=== PATIENT | male | born 1985 | race Caucasian/White ===

== ENCOUNTER 2016-07-23 09:22 | Emergency (ER) | payer OTHER ==
[~2016-07-23 09:22] MED LIST: CILOXAN 0.3% O2.5 ML OD; DENTAL BALLS; FLEXERIL PO; HYDROCODON-ACE1 EAC7 PO; NO MEDICATIONS; PEN-VEE K PO
[2016-07-23 09:38] LABS: INFLUENZA A NEG (NEG); INFLUENZA B NEG (NEG)
== END 2016-07-23 10:11 | disposition home or self-care (01) ==
LOC: SED 09:22
PROVIDERS: Emergency Medicine
DX: B34.9 Viral infection, unspecified (principal); F17.200 Nicotine dependence, unspecified, uncomplicated
CPT/HCPCS: 87651; 87804; 99283